=== PATIENT | female | born 1960 | race Caucasian/White ===

== ENCOUNTER → 2016-12-20 | Outpatient (CLI) | payer OTHER ==
[2015-03-12 11:50] VITALS: BP 120/66
--- NOTE | 2016-12-20 12:55 | RAD ---
Indication cough. PA and lateral views of the chest were obtained. No prior imaging of the chest is available. The heart and pulmonary vessels appear normal. The mediastinum has a normal appearance. The lungs are clear. IMPRESSION: No acute or significant finding seen in the chest
== END | disposition home or self-care (01) ==
LOC: RAD 12:14
PROVIDERS: ATTEND Family Medicine
DX: J40 Bronchitis, not specified as acute or chronic (principal)
CPT/HCPCS: 71020

== ENCOUNTER → 2016-12-31 | Outpatient (CLI) | payer OTHER ==
[2015-03-12 11:50] VITALS: BP 120/66
--- NOTE | 2016-12-31 16:24 | RAD ---
DATE: 12/31/2016 EXAM: DIGITAL SCREEN BILAT W/CAD HISTORY: Routine screening COMPARISON: None available This study was interpreted with the benefit of Computerized Aided Detection (CAD). FINDINGS: Breast Density: HETERO The breast parenchyma Is heterogeneous dense, which could reduce sensitivity of mammography. Breast parenchyma level C. There are no dominant suspicious masses, suspicious microcalcifications or evidence of architectural distortion. IMPRESSION: Benign findings BI-RADS CATEGORY: 2 BENIGN FINDING RECOMMENDED FOLLOW-UP: 12M 12 MONTH FOLLOW-UP PQRS compliance statement: Patient information was entered into a reminder system with a target due date 12/31/2017 for the next mammogram. Mammography is a sensitive method for finding small breast cancers, but it does not detect them all and is not a substitute for careful clinical examination. A negative mammogram does not negate a clinically suspicious finding and should not result in delay in biopsying a clinically suspicious abnormality. "Our facility is accredited by the [employer] Mammography [employer]."
== END | disposition home or self-care (01) ==
LOC: MAMMO 12:25
PROVIDERS: ATTEND Family Medicine
DX: Z12.31 Encounter for screening mammogram for malignant neoplasm of breast (principal)
CPT/HCPCS: G0202; 77067

== ENCOUNTER 2017-12-23 18:26 | Emergency (ER) | payer OTHER ==
[2017-12-23] MEDS: IV NORMAL SALINE 1000ML BAG 1,000 ML IV (19:00)
[2017-12-23 19:09] LABS: BILIRUBIN,URINE SMALL (NEG); CLARITY,URINE CLEAR; COLOR,URINE AMBER; GLUCOSE,URINE NEGATIVE (NEG); NITRITE,URINE NEGATIVE (NEG); PROTEIN,URINE 30 mg/dL (NEG-TRACE)
[2017-12-23 19:14] LABS: ADD MAN DIFF? NO
[2017-12-23 19:16] LABS: BASO % 0 % (0-3); EOS % 0 % (0-3); HEMATOCRIT 50.4 % (36.0-47.0); HEMOGLOBIN 17.5 g/dL (12.0-15.5); LYMPH % 24 % (24-48); MEAN CORPUSCULAR HEMOGLOBIN 33 pg (25-35); MEAN CORPUSCULAR HGB CONC 35 g/dL (31-37); MEAN CORPUSCULAR VOLUME 96 fL (79-100); MONO # 0.8 x10^3/uL (0.0-1.1); MONO % 6 % (0-9); NEUT # 8.4 x10^3uL (1.8-7.7); NEUT % 69 % (31-73); PLATELET COUNT 319 x10^3/uL (140-400); RED BLOOD COUNT 5.26 x10^6/uL (3.50-5.40); RED CELL DISTRIBUTION WIDTH 12.9 % (11.5-14.5); WHITE BLOOD COUNT 12.2 x10^3/uL (4.0-11.0)
[2017-12-23 19:23] LABS: BACTERIA,URINE MODERATE /HPF (0-FEW); SQUAMOUS EPITHELIAL CELL,UR MOD /LPF; WBC,URINE >40 /HPF (0-4)
[2017-12-23 19:28] LABS: ANION GAP 11 (6-14); BLOOD UREA NITROGEN 18 mg/dL (7-20); BUN/CREATININE RATIO 18 (6-20); CALCIUM 9.9 mg/dL (8.5-10.1); CARBON DIOXIDE 30 mmol/L (21-32); CHLORIDE 98 mmol/L (98-107); GFR 57.4; GLUCOSE 121 mg/dL (70-99); SODIUM 139 mmol/L (136-145)
[2017-12-23 19:34] LABS: ALBUMIN 4.5 g/dL (3.4-5.0); ALK PHOS 62 U/L (46-116); ALT (SGPT) 38 U/L (14-59); AST (SGOT) 21 U/L (15-37); TOTAL BILIRUBIN 0.9 mg/dL (0.2-1.0); TOTAL PROTEIN 8.9 g/dL (6.4-8.2)
[2017-12-23 19:44] LABS: TROPONINI < 0.017 ng/mL (0.000-0.055)
[2017-12-23] MEDS ORDERED: PROMETHAZINE IM 25 MG/ML VIAL IM (20:30)
[2017-12-23] MEDS: IOHEXOL 300 MG/ML 100ML VIAL. IV (20:46)
[2017-12-23] MEDS: METOCLOPRAMIDE HCL 10 MG/2 ML VIAL. IV (20:51)
[2017-12-23] MEDS: FAMOTIDINE 20 MG/2 ML VIAL IVP (21:57)
== END 2017-12-23 22:30 | disposition home or self-care (01) ==
LOC: ER 18:26
DX: N39.0 Urinary tract infection, site not specified (principal); K29.70 Gastritis, unspecified, without bleeding; F12.10 Cannabis abuse, uncomplicated; Z88.0 Allergy status to penicillin; Z88.6 Allergy status to analgesic agent
CPT/HCPCS: 36415; 74177; 80053; 81001; 84484; 85025; 87086; 93005; 96361; 96365; 96375; 99285-25; J1956; J2765; J7030; Q9967; S0028